=== PATIENT | female | born 1970 | race African-American/Black ===

== ENCOUNTER 2018-04-05 19:15 | Inpatient (IN) | payer BC ==
[2018-04-05] MEDS ORDERED: NORMAL SALINE 1000 ML 1,000 ML IV ONE (19:52)
--- NOTE | 2018-04-05 19:55 | ER Document Report ---
ED Medical Screen (RME) - General Chief Complaint: Syncope Stated Complaint: BLOOD SUGAR ISSUE Time Seen by Provider: 04/05/18 19:51 Notes: 48 years old female with a history of diabetes, elevated blood sugar, has a right axillary abscess/cellulitis presents today with a fever of 101, feeling dizzy lightheaded, almost passed out prior to arrival. On examination appears weak, right axilla has a erythematous area of 6 cm circumferential. Tender TRAVEL OUTSIDE OF THE [place] IN LAST 30 DAYS: No - Related Data Allergies/Adverse Reactions: No Known Allergies Allergy (Verified 04/05/18 19:18) Physical Exam - Vital signs Vitals: Temp Pulse Resp BP Pulse Ox 100.3 F 104 H 26 H 154/85 H 99 04/05/18 19:22 04/05/18 19:22 04/05/18 19:22 04/05/18 19:22 04/05/18 19:22 Course - Vital Signs Vital signs: Temp Pulse Resp BP Pulse Ox 100.3 F 104 H 26 H 154/85 H 99 04/05/18 19:22 04/05/18 19:22 04/05/18 19:22 04/05/18 19:22 04/05/18 19:22 Doctor's Discharge - Discharge Referrals: CHELSIE HERRERA MD [Primary Care Provider] - Follow up as needed
[2018-04-05] MEDS ORDERED: CEFTRIAXONE 2 GM/D5W RTU 2 GM/50 ML RTUPB IV SCH (20:16)
[2018-04-05] MEDS ORDERED: CEFTRIAXONE INJ 1000 MG VIAL ONE ×2 (20:25→20:26)
[2018-04-05 20:26] LABS: ABSOLUTE BASOPHILS # (AUTO) 0.1 10^3/uL (0.0-0.2); ABSOLUTE EOSINOPHILS # (AUTO) 0.2 10^3/uL (0.0-0.6); ABSOLUTE LYMPHOCYTES (AUTO) 1.4 10^3/uL (0.5-4.7); ABSOLUTE MONOCYTES (AUTO) 0.7 10^3/uL (0.1-1.4); ABSOLUTE NEUT (AUTO) 10.5 10^3/uL (1.7-8.2); BASOPHILS % (AUTO) 0.8 % (0-2); EOSINOPHILS % (AUTO) 1.7 % (0-6); HEMATOCRIT 28.5 % (36.0-47.0); HEMOGLOBIN 9.8 g/dL (12.0-15.5); LYMPHOCYTES % (AUTO) 10.7 % (13-45); MEAN CORPUSCULAR HEMOGLOBIN 31.6 pg (27.0-33.4); MEAN CORPUSCULAR HGB CONC 34.4 g/dL (32.0-36.0); MEAN CORPUSCULAR VOLUME 92 fl (80-97); MONOCYTES % (AUTO) 5.1 % (3-13); PLATELET COUNT 201 10^3/uL (150-450); RED CELL DISTRIBUTION WIDTH 12.6 % (11.5-14.0); SEGMENTED NEUTROPHILS % (AUTO) 81.7 % (42-78); TOTAL CELLS COUNTED % (AUTO) 100 %; WHITE BLOOD COUNT 12.9 10^3/uL (4.0-10.5)
[2018-04-05 20:34] LABS: ALANINE AMINOTRANSFERASE 12 U/L (9-52); ALBUMIN 3.4 g/dL (3.5-5.0); ALKALINE PHOSPHATASE 183 U/L (38-126); ANION GAP 9 (5-19); ASPARTATE AMINO TRANSFERASE 12 U/L (14-36); BILIRUBIN,DIRECT 0.5 mg/dL (0.0-0.4); BILIRUBIN,TOTAL 0.5 mg/dL (0.2-1.3); BLOOD UREA NITROGEN 21 mg/dL (7-20); CALCIUM 8.6 mg/dL (8.4-10.2); CARBON DIOXIDE 24 mmol/L (22-30); CHLORIDE 98 mmol/L (98-107); POTASSIUM 4.6 mmol/L (3.6-5.0); SODIUM 130.9 mmol/L (137-145); TOTAL PROTEIN 7.3 g/dL (6.3-8.2)
[2018-04-05 20:45] LABS: GLUCOSE 411 mg/dL (75-110)
[2018-04-05 20:59] LABS: VENOUS BLOOD BASE EXCESS -1.9 mmol/L; VENOUS BLOOD HCO3 23.5 mmol/L (20-32); VENOUS BLOOD PCO2 42.5 mmHg (35-63); VENOUS BLOOD PH 7.36 (7.30-7.42)
[2018-04-05] MEDS ORDERED: CEFTRIAXONE SODIUM 2,000 MG in NORMAL SALINE 100 ML IV SCH (21:00)
[2018-04-05] MEDS ORDERED: MORPHINE SULFATE 10 MG/ML INJ IV PRN (21:51)
[2018-04-05] MEDS: NORMAL SALINE 1000 ML 1,000 ML IV PRN (22:06)
[2018-04-05] MEDS ORDERED: LIDOCAINE 1%/EPINEPHRINE INJ 20 ML VIAL ONE (22:18)
[2018-04-05] MEDS ORDERED: LIDOCAINE 1%/EPINEPHRINE INJ 20 ML VIAL INJ ONE (22:20)
[2018-04-05] MEDS ORDERED: VANCOMYCIN HCL INJ 1000 MG VIAL IV ONE (22:21)
[2018-04-05] MEDS ORDERED: MIDAZOLAM 2 MG/2 ML INJ ONE (22:29)
[2018-04-05] MEDS ORDERED: MIDAZOLAM 2 MG/2 ML INJ IV ONE (22:29)
[2018-04-05] MEDS ORDERED: INSULIN REG, HUMAN 100 UNIT/ML 3 ML VIAL (PYX) SUBCUT ONE (23:04)
--- NOTE | 2018-04-05 23:04 | ER Document Report ---
ED General - General Chief Complaint: Syncope Stated Complaint: BLOOD SUGAR ISSUE Time Seen by Provider: 04/05/18 19:51 Notes: Patient is a 48-year-old female with a past medical history of diabetes, hypertension, morbid obesity who presents with complaints of fever, body aches, and near syncopal episode prior to arrival. She also notes that she has had several days of progressively worsening swelling and pain to her right axilla. She also notes that there is been purulent drainage from this area. She describes the pain as a severe, throbbing, constant pain to the area. She has noted spreading redness from the area. She denies a history of similar symptoms in the past. She has not seen her general doctor regarding today's concerns. TRAVEL OUTSIDE OF THE [place] IN LAST 30 DAYS: No - Related Data Allergies/Adverse Reactions: No Known Allergies Allergy (Verified 04/05/18 19:18) Past Medical History - General Information source: Patient - Social History Smoking Status: Never Smoker Chew tobacco use (# tins/day): No Frequency of alcohol use: None Drug Abuse: None Lives with: Spouse/Significant other Family History: Reviewed & Not Pertinent Patient has suicidal ideation: No Patient has homicidal ideation: No Renal/ Medical History: Denies: Hx Peritoneal Dialysis Review of Systems - Review of Systems Notes: Constitutional: Positive for fever. HENT: Negative for sore throat. Eyes: Negative for visual changes. Cardiovascular: Negative for chest pain. Respiratory: Negative for shortness of breath. Gastrointestinal: Negative for abdominal pain, vomiting or diarrhea. Genitourinary: Negative for dysuria. Musculoskeletal: Negative for back pain. Skin: Positive for rash. Neurological: Negative for headaches, weakness or numbness. 10 point ROS negative except as marked above and in HPI. Physical Exam - Vital signs Vitals: Temp Pulse Resp BP Pulse Ox 100.3 F 104 H 26 H 154/85 H 99 04/05/18 19:22 04/05/18 19:22 04/05/18 19:22 04/05/18 19:22 04/05/18 19:22 Interpretation: Tachycardic Notes: PHYSICAL EXAMINATION: GENERAL: Appears moderately ill but in no acute distress HEAD: Atraumatic, normocephalic. EYES: Pupils equal round and reactive to light, extraocular movements intact, sclera anicteric, conjunctiva are normal. ENT: nares patent, oropharynx clear without exudates. Moderately dry mucous membranes. NECK: Normal range of motion, supple without lymphadenopathy LUNGS: Breath sounds clear to auscultation bilaterally and equal. No wheezes rales or rhonchi. HEART: Regular tachycardia without murmurs ABDOMEN: Soft, nontender, normoactive bowel sounds. No guarding, no rebound. No masses appreciated. EXTREMITIES: Normal range of motion, no pitting or edema. No cyanosis. NEUROLOGICAL: No focal neurological deficits. Moves all extremities spontaneously and on command. PSYCH: Moderately anxious SKIN: Warm, Dry, normal turgor, there is a 4 x 5 cm abscess in the right axilla with spreading erythema approximately 2 cm medially from the main area of fluctuance Course - Re-evaluation Re-evalutation: 04/05/18 23:03 Patient presents with sepsis with fever, tachycardia, leukocytosis in the setting of an abscess with associated cellulitis in her right axilla. The patient denies a known history of chronic kidney disease although labs from 2016 do show some apparent disease of chronic kidney disease. GFR is however much worse today worrisome for superimposed acute kidney dysfunction in the setting of sepsis. The patient is also profoundly hyperglycemic into the 400s without evidence of diabetic ketoacidosis. The abscess was incised and drained at the bedside. Given the patient having acute on chronic kidney dysfunction, severe hyperglycemia, and meeting sepsis criteria she should be hospitalized. I will discussed with the hospitalist for admission. - Vital Signs Vital signs: Temp Pulse Resp BP Pulse Ox 99.5 F 89 16 155/72 H 100 04/06/18 01:06 04/06/18 01:06 04/06/18 01:06 04/06/18 01:06 04/06/18 01:06 - Laboratory Result Diagrams: 04/05/18 20:00 04/05/18 20:00 Laboratory results interpreted by me: 04/05/18 04/05/18 04/05/18 20:00 20:00 20:00 WBC 12.9 H RBC 3.10 L Hgb 9.8 L Hct 28.5 L Seg Neutrophils % 81.7 H Lymphocytes % 10.7 L Absolute Neutrophils 10.5 H Sodium 130.9 L BUN 21 H Creatinine 2.20 H Est GFR ( Amer) 29 L Est GFR (Non-Af Amer) 24 L Glucose 411 H* Hemoglobin A1c % Iron < 10.1 L TIBC 210 L Direct Bilirubin 0.5 H AST 12 L Alkaline Phosphatase 183 H Albumin 3.4 L 04/05/18 20:00 WBC RBC Hgb Hct Seg Neutrophils % Lymphocytes % Absolute Neutrophils Sodium BUN Creatinine Est GFR ( Amer) Est GFR (Non-Af Amer) Glucose Hemoglobin A1c % > 14.0 H Iron TIBC Direct Bilirubin AST Alkaline Phosphatase Albumin Procedures - Incision and Drainage Right axilla Type: Complex Anesthetic type: 1% Lidocaine w/epi Blade size: 11 I&D procedure: Betadine prep applied, Iodoform packing placed Incision Method: Incision made by scalpel Amount/type of drainage: 15 cc of purulent drainage Discharge - Discharge Clinical Impression: Abscess of right axilla, Cellulitis of upper arm, Hyperglycemia Sepsis Qualifiers: Sepsis type: sepsis due to unspecified organism Qualified Code(s): A41.9 - Sepsis, unspecified organism Condition: Fair Disposition: ADMITTED INPATIENT Admitting Provider: Hospitalist Unit Admitted: Telemetry
[2018-04-05] MEDS ORDERED: RINGERS SOLUTION,LACTATED 1,000 ML IV ONE (23:07)
[2018-04-05] MEDS ORDERED: HYDRALAZINE HCL INJ/PF 20 MG/1 ML SDV IV PRN (23:08)
[2018-04-05] MEDS ORDERED: MAG HYDROX/AL HYDROX/SIMETH SUSP 30 ML UDCUP PO PRN (23:08)
[2018-04-05] MEDS ORDERED: ZOLPIDEM TARTRATE 5 MG TABLET PO PRN (23:08)
[2018-04-05] MEDS ORDERED: ACETAMINOPHEN 325 MG TABLET PO PRN (23:08)
[2018-04-05] MEDS ORDERED: MAGNESIUM HYDROXIDE SUSP 30 ML UDCUP PO PRN (23:08)
[2018-04-05] MEDS ORDERED: VANCOMYCIN HCL 0 MG in DEXTROSE 5%-WATER 250 ML IV NR (23:15)
[2018-04-05 23:34] LABS: ABSOLUTE RETICS # 0.036 10^6/uL (0.028-0.122); RETICULOCYTE COUNT (AUTO) 1.15 % (0.66-2.85)
[2018-04-05 23:54] LABS: IRON(TIBC) < 10.1 ug/dL (37-170)
[2018-04-06] MEDS ORDERED: NORMAL SALINE 1000 ML 1,000 ML IV PRN
[2018-04-06 00:04] LABS: APPEARANCE,URINE CLEAR; BILIRUBIN,URINE NEGATIVE (NEGATIVE); COLOR,URINE YELLOW; GLUCOSE, URINE >=500 mg/dL (NEGATIVE); KETONES,URINE NEGATIVE (NEGATIVE); LEUKOCYTE ESTERASE,URINE NEGATIVE (NEGATIVE); NITRITE,URINE NEGATIVE (NEGATIVE); PROTEIN,URINE >=500 mg/dL (NEGATIVE); URINE SPECIFIC GRAVITY 1.018; UROBILINOGEN,URINE NEGATIVE mg/dL (<2.0)
[2018-04-06 00:52] LABS: FOLATE 7.06 ng/mL (>2.76)
[2018-04-06] MEDS: HEPARIN SOD (PORCINE) 5,000 UNIT/ML 1 ML SYRINGE SUBCUT SCH ×3 (05:43→22:21)
[2018-04-06 05:50] LABS: ABSOLUTE EOSINOPHILS # (AUTO) 0.2 10^3/uL (0.0-0.6); ABSOLUTE LYMPHOCYTES (AUTO) 1.1 10^3/uL (0.5-4.7); ABSOLUTE MONOCYTES (AUTO) 0.6 10^3/uL (0.1-1.4); ABSOLUTE NEUT (AUTO) 7.6 10^3/uL (1.7-8.2); BASOPHILS % (AUTO) 0.2 % (0-2); HEMATOCRIT 24.1 % (36.0-47.0); HEMOGLOBIN 8.4 g/dL (12.0-15.5); LYMPHOCYTES % (AUTO) 11.6 % (13-45); MEAN CORPUSCULAR HEMOGLOBIN 32.1 pg (27.0-33.4); MEAN CORPUSCULAR VOLUME 92 fl (80-97); MONOCYTES % (AUTO) 6.5 % (3-13); PLATELET COUNT 161 10^3/uL (150-450); RED BLOOD COUNT 2.62 10^6/uL (3.72-5.28); RED CELL DISTRIBUTION WIDTH 12.2 % (11.5-14.0); SEGMENTED NEUTROPHILS % (AUTO) 79.7 % (42-78); TOTAL CELLS COUNTED % (AUTO) 100 %; WHITE BLOOD COUNT 9.5 10^3/uL (4.0-10.5)
[2018-04-06 06:05] LABS: ANION GAP 8 (5-19); BLOOD UREA NITROGEN 20 mg/dL (7-20); CALCIUM 7.8 mg/dL (8.4-10.2); CARBON DIOXIDE 25 mmol/L (22-30); CHLORIDE 100 mmol/L (98-107); POTASSIUM 4.5 mmol/L (3.6-5.0); SODIUM 132.5 mmol/L (137-145)
[2018-04-06] MEDS ORDERED: GLUCAGON,HUMAN RECOMB 1 MG INJ IM PRN (06:28)
[2018-04-06] MEDS ORDERED: INSULIN LISPRO 100 UNIT/ML 3 ML VIAL SUBCUT PRN (06:28)
[2018-04-06] MEDS ORDERED: DEXTROSE 40% GEL 15 GM TUBE PO PRN ×2 (06:28)
[2018-04-06] MEDS ORDERED: DEXTROSE 50%-WATER 25 GM/50 ML DISP.SYRIN IV PRN ×2 (06:28)
[2018-04-06] MEDS ORDERED: IRON SUCROSE COMPLEX INJ/PF 100 MG/5 ML SDV IV ONE ×2 (06:30→09:00)
[2018-04-06 06:39] LABS: GLUCOSE 426 mg/dL (75-110)
--- NOTE | 2018-04-06 06:41 | PDOC H&P ---
History of Present Illness Admission Date/PCP: 04/05/18 23:25 ANNABELLE CAO MD Patient complains of: Right axillary abscess History of Present Illness: RAUL SUTTON is a 48 year old female with a past medical history of hypertension, diabetes and chronic kidney disease. She presents with 1 week of increasing swelling and pain to the right axilla prompting evaluation in the emergency room where she has an I&D performed with packing. Labs reveal leukocytosis, microcytic anemia, acute on chronic renal failure. She is started on vancomycin and Rocephin then referred to the hospitalist for admission. She denies previous episode, new medications or recent antibiotic use. she is unaware of her glycemic control. Past Medical History Endocrine Medical History: Reports: Diabetes Mellitus Type 2 Renal/ Medical History: Reports: Chronic Kidney Disease Psychiatric Medical History: Reports: Tobacco Dependency Denies: Depression Social History Information Source: Patient Lives with: Spouse/Significant other Smoking Status: Never Smoker Frequency of Alcohol Use: None Hx Recreational Drug Use: No Drugs: None - Advance Directive Resuscitation Status: Full Code Family History Family History: DM, Hypertension Parental Family History Reviewed: Yes Children Family History Reviewed: Yes Sibling(s) Family History Reviewed.: Yes Medication/Allergy Allergies/Adverse Reactions: No Known Allergies Allergy (Verified 04/05/18 19:18) Review of Systems Constitutional: PRESENT: as per HPI, anorexia, fatigue Eyes: ABSENT: visual disturbances Ears: ABSENT: hearing changes Cardiovascular: ABSENT: chest pain, dyspnea on exertion, edema, orthropnea, palpitations Respiratory: ABSENT: cough, hemoptysis Gastrointestinal: PRESENT: as per HPI, bloating. ABSENT: coffee ground emesis, constipation Genitourinary: ABSENT: dysuria, hematuria Musculoskeletal: ABSENT: joint swelling Integumentary: PRESENT: as per HPI, lesions Neurological: ABSENT: abnormal gait, abnormal speech, confusion, dizziness, focal weakness, syncope Psychiatric: ABSENT: anxiety, depression, homidical ideation, suicidal ideation Endocrine: PRESENT: as per HPI, polydipsia, polyphagia, polyuria Hematologic/Lymphatic: ABSENT: easy bleeding, easy bruising Physical Exam Vital Signs: Temp Pulse Resp BP Pulse Ox 99.5 F 96 16 155/72 H 100 04/06/18 01:06 04/06/18 02:00 04/06/18 01:06 04/06/18 01:06 04/06/18 01:06 Intake & Output 04/04/18 04/05/18 04/06/18 11:59 11:59 11:59 Weight 107.3 kg General appearance: PRESENT: cooperative, mild distress. ABSENT: disheveled Head exam: PRESENT: atraumatic, normocephalic Eye exam: PRESENT: conjunctiva pink, EOMI, PERRLA. ABSENT: scleral icterus Ear exam: PRESENT: normal external ear exam Mouth exam: PRESENT: moist, tongue midline Neck exam: ABSENT: carotid bruit, JVD, lymphadenopathy, thyromegaly Respiratory exam: PRESENT: clear to auscultation sherrie. ABSENT: rales, rhonchi, wheezes Cardiovascular exam: PRESENT: RRR, tachycardia. ABSENT: diastolic murmur, rubs , systolic murmur Pulses: PRESENT: normal dorsalis pedis pul Vascular exam: PRESENT: normal capillary refill GI/Abdominal exam: PRESENT: normal bowel sounds, soft. ABSENT: distended, guarding, mass, organolmegaly, rebound, tenderness Torso Front/Back Image: 1 - Serosanguineous drainage from I&D abscess Rectal exam: PRESENT: deferred Extremities exam: PRESENT: full ROM. ABSENT: calf tenderness, clubbing, pedal edema Neurological exam: PRESENT: alert, awake, oriented to person, oriented to place , oriented to time, oriented to situation, CN II-XII grossly intact. ABSENT: motor sensory deficit Psychiatric exam: PRESENT: appropriate affect, normal mood. ABSENT: homicidal ideation, suicidal ideation Skin exam: PRESENT: erythema, other - 4 x 5 cm abscess with associated cellulitis, packing and serosanguineous drainage from the right axilla. ABSENT : intact Results Laboratory Results: 04/06/18 03:59 04/05/18 04/06/18 23:50 03:59 WBC 9.5 RBC 2.62 L Hgb 8.4 L Hct 24.1 L MCV 92 MCH 32.1 MCHC 35.0 RDW 12.2 Plt Count 161 Seg Neutrophils % 79.7 H Lymphocytes % 11.6 L Monocytes % 6.5 Eosinophils % 2.0 Basophils % 0.2 Absolute Neutrophils 7.6 Absolute Lymphocytes 1.1 Absolute Monocytes 0.6 Absolute Eosinophils 0.2 Absolute Basophils 0.0 Urine Color YELLOW Urine Appearance CLEAR Urine pH 6.0 Ur Specific [place] 1.018 Urine Protein >=500 H Urine Glucose (UA) >=500 H Urine Ketones NEGATIVE Urine Blood NEGATIVE Urine Nitrite NEGATIVE Ur Leukocyte Esterase NEGATIVE Urine WBC (Auto) 1 Urine RBC (Auto) 7 Assessment & Plan - Diagnosis (1) Abscess of right axilla Is this a current diagnosis for this admission?: Yes Plan: I&D performed, follow-up surgical consult, wound culture and Gram stain, empiric vancomycin and Rocephin initiated. (2) Cellulitis of upper arm Is this a current diagnosis for this admission?: Yes Plan: Secondary to #1, follow-up CBC (3) Sepsis Qualifiers: Sepsis type: sepsis due to unspecified organism Qualified Code(s): A41.9 - Sepsis, unspecified organism Is this a current diagnosis for this admission?: Yes Plan: Secondary to #1, IV fluid challenge, follow-up lactic acid, CBC blood culture. (4) Acute on chronic renal failure Is this a current diagnosis for this admission?: Yes Plan: Discontinue metformin, IV fluid challenge, avoid nephrotoxic meds and doses follow-up chemistry (5) Diabetes Is this a current diagnosis for this admission?: Yes Plan: Discontinue metformin, insulin 7030 twice daily with Humalog sliding scale, follow-up A1c, dietitian consult - Time Time Spent: 50 to 70 Minutes - Inpatient Certification Medical Necessity: Need Close Monitoring Due to Risk of Patient Decompensation
[2018-04-06] MEDS ORDERED: HUM INSULIN NPH/REG INSULIN HM 100 UNIT/1 ML 3 ML SUBCUT SCH (08:00)
[2018-04-06] MEDS ORDERED: INSULIN LISPRO 100 UNIT/ML 3 ML VIAL SUBCUT ONE (08:45)
[2018-04-06] MEDS ORDERED: HUM INSULIN NPH/REG INSULIN HM 100 UNIT/1 ML 3 ML SUBCUT ONE (08:45)
[2018-04-06] MEDS: INSULIN LISPRO 100 UNIT/ML 3 ML VIAL SUBCUT PRN ×3 (08:54→22:22)
[2018-04-06] MEDS: DOCUSATE SODIUM 100 MG CAPSULE PO SCH ×2 (09:18→22:20)
[2018-04-06] MEDS ORDERED: CEFTRIAXONE 2 GM/D5W RTU 2 GM/50 ML RTUPB IV SCH (10:00)
[2018-04-06] MEDS ORDERED: CEFTRIAXONE 1 GM/D5W RTU 1 GM/50 ML RTUPB IV SCH (10:00)
[2018-04-06] MEDS: VANCOMYCIN HCL 750 MG in DEXTROSE 5%-WATER 250 ML IV SCH ×2 (11:04→22:26)
[2018-04-06] MEDS: NORMAL SALINE 1000 ML 1,000 ML IV PRN ×2 (11:09→20:24)
[2018-04-06] MEDS ORDERED: OXYCODONE HCL IR 5 MG TABLET PO PRN (17:32)
--- NOTE | 2018-04-06 17:38 | PDOC PROGRESS REPORT ---
Subjective Progress Note for:: 04/06/18 Subjective:: The patient is a 48-year-old female with a past medical history of hypertension , diabetes, and chronic kidney disease who was admitted 04/05/18 for sepsis secondary to abscess and cellulitis of the right upper arm. The patient is seen on morning rounds. She is found resting in bed comfortably on room air. She is awake and alert x4. She tells me that she is feeling fine and denies pain or discomfort at this time. The surgeon has just been by to examine the wound and she is happy to report that he does not feel that she needs to go to the OR today. The plan is to continue IV antibiotics today, n.p.o. after midnight, and reevaluation by surgery tomorrow. The patient does ask questions with regard to her A1c and initiation of insulin. She reports that she has used insulin in the past; but only while . We discussed briefly discussed the plan to monitor her sugar closely , adjust insulin, and hopefully discharge her on long-acting insulin only. We will also ask the registered dietitian and the tobacco educator to meet with the patient. She denies fever, chills, chest pain, palpitations, dyspnea, orthopnea, abdominal pain, nausea and vomiting. She has no other questions or concerns at this time. Nursing did have clarification questions with regard to insulin, but otherwise no concerns today. Reason For Visit: SEPSIS, ACUTE RENAL FAILURE,DM,ABSCESS Physical Exam Vital Signs: Temp Pulse Resp BP Pulse Ox 100.0 F 89 18 150/71 H 100 04/06/18 15:43 04/06/18 15:43 04/06/18 15:43 04/06/18 15:43 04/06/18 15:43 Intake & Output 04/05/18 04/06/18 04/07/18 06:59 06:59 06:59 Intake Total 2250 Balance 2250 General appearance: PRESENT: no acute distress, obese, well-developed, well- nourished Head exam: PRESENT: atraumatic, normocephalic Eye exam: PRESENT: conjunctiva pink, EOMI, PERRLA. ABSENT: scleral icterus Ear exam: PRESENT: normal external ear exam Mouth exam: PRESENT: moist, tongue midline Neck exam: ABSENT: carotid bruit, JVD, lymphadenopathy, thyromegaly Respiratory exam: PRESENT: clear to auscultation sherrie, symmetrical, unlabored. ABSENT: rales, rhonchi, wheezes Cardiovascular exam: PRESENT: RRR, +S1, +S2. ABSENT: diastolic murmur, rubs, systolic murmur Pulses: PRESENT: normal dorsalis pedis pul Vascular exam: PRESENT: normal capillary refill GI/Abdominal exam: PRESENT: normal bowel sounds, soft. ABSENT: distended, guarding, mass, organolmegaly, rebound, tenderness Rectal exam: PRESENT: deferred Extremities exam: PRESENT: full ROM. ABSENT: calf tenderness, clubbing, pedal edema Neurological exam: PRESENT: alert, awake, oriented to person, oriented to place , oriented to time, oriented to situation, CN II-XII grossly intact. ABSENT: motor sensory deficit Psychiatric exam: PRESENT: appropriate affect, normal mood. ABSENT: homicidal ideation, suicidal ideation Skin exam: PRESENT: dry, erythema - RUE, warm, other - I&D to right axilla; wound not visualized, new dressing in place. ABSENT: cyanosis, rash Assessment & Plan - Diagnosis (1) Sepsis Qualifiers: Sepsis type: sepsis due to unspecified organism Qualified Code(s): A41.9 - Sepsis, unspecified organism Is this a current diagnosis for this admission?: Yes Plan: The patient presented with sepsis due to cellulitis/abscess of the right upper extremity evidenced by fever, tachycardia, tachypnea, leukocytosis, and acute worsening of chronic kidney disease. She was admitted to the medical floor and provided generous IV fluids. Blood cultures are pending. She was empirically placed on IV vancomycin and Rocephin. (2) Abscess of right axilla Is this a current diagnosis for this admission?: Yes Plan: Status post incision and drainage. Wound culture and Gram stain were not obtained. Blood cultures are pending. She is empirically placed on IV vancomycin and Rocephin; will adjust as cultures result. Surgery has been consulted; appreciate their expert evaluation and assistance. Tylenol as needed for fever. Oxycodone as needed for pain. (3) Cellulitis of upper arm Is this a current diagnosis for this admission?: Yes Plan: Related to right axillary abscess. Plan as above. (4) Anemia Qualifiers: Anemia type: iron deficiency Is this a current diagnosis for this admission?: Yes Plan: Multifactorial; likely secondary to chronic kidney insufficiency and poor nutrition in the setting of obesity and uncontrolled diabetes mellitus. The patient was admitted with a hemoglobin of 9.8, trended down to 8.4 following IV fluids. Anemia panel reveals iron deficiency. She has been provided IV benefit here x2. Registered dietitian and tobacco educator educated. We will continue to monitor daily CBC; consider transfusion for hemoglobin <8.0 (5) Acute on chronic renal failure Qualifiers: Chronic kidney disease stage: stage 3 (moderate) Is this a current diagnosis for this admission?: Yes Plan: Baseline creatinine approximately 1.88 (most recent prior labs from November 2015). She was admitted with a creatinine of 2.20; has trended down with IV fluids. We will avoid nephrotoxic medications. Metformin is discontinued. Renally dosed vancomycin. Continue maintenance IV fluids. We will monitor daily chemistries. (6) Diabetes Qualifiers: Diabetes mellitus type: type 2 Diabetes mellitus assisted insulin use: without coil maker use Diabetes mellitus complication status: with kidney complications Chronic kidney disease stage: stage 3 (moderate) Is this a current diagnosis for this admission?: Yes Plan: Hemoglobin A1c found to be >14% The patient's metformin is discontinued. She is placed on a consistent carb diet. Accu-Cheks before meals and at bedtime with Humalog for sliding scale coverage. Have started Lantus 10 units nightly. Registered dietitian and tobacco educator consulted. We will consult discharge planning; will need to ensure patient will be able to afford insulin at discharge. (7) Hypertension Qualifiers: Hypertension type: essential hypertension Qualified Code(s): I10 - Essential (primary) hypertension Is this a current diagnosis for this admission?: Yes Plan: Have resumed the patient's home dose losartan. - Time Time Spent with patient: 15-24 minutes Medications reviewed and adjusted accordingly: Yes Anticipated discharge: Home - Inpatient Certification Based on my medical assessment, after consideration of the patient's comorbidities, presenting symptoms, or acuity I expect that the services needed warrant INPATIENT care.: Yes I certify that my determination is in accordance with my understanding of Medicare's requirements for reasonable and necessary INPATIENT services [42 CFR 412.3e].: Yes Medical Necessity: Need For IV Fluids, Need for IV Antibiotics, Need for Surgery
[2018-04-06] MEDS ORDERED: INSULIN GLARGINE,HUM.REC.ANLOG 300 UNIT/3 ML INSULN.PEN SUBCUT SCH (22:00)
[2018-04-06] MEDS ORDERED: CEFTRIAXONE SODIUM 1,000 MG in DEXTROSE 5%-WATER 50 ML IV SCH (22:00)
--- NOTE | 2018-04-06 22:39 | PDOC CONSULTATION ---
Consultation Consult Date: 04/06/18 Consult reason:: abscess right axilla post i&D in ED last night History of Present Illness Admission Date/PCP: 04/06/18 06:42 ANNABELLE CAO MD Patient complains of: Right axilla pains History of Present Illness: RAUL SUTTON is a 48 year old female who is hypertensive and Diabetic with CRF admitted for a week's duration of right axilla pains. Noted ascess in the ED. Right axilla was drained and packing placed in ED. Past Medical History Endocrine Medical History: Reports: Diabetes Mellitus Type 2 Renal/ Medical History: Reports: Chronic Kidney Disease Psychiatric Medical History: Reports: Tobacco Dependency Denies: Depression Social History Lives with: Spouse/Significant other Smoking Status: Never Smoker Frequency of Alcohol Use: None Hx Recreational Drug Use: No Drugs: None - Advance Directive Resuscitation Status: Full Code Family History Family History: DM, Hypertension Parental Family History Reviewed: Yes Children Family History Reviewed: No Sibling(s) Family History Reviewed.: No Medication/Allergy Home Medications: Metformin HCl [Glucophage 500 mg Tablet] 500 mg PO DAILY 04/06/18 Triamterene/Hydrochlorothiazid [Dyazide 37.5-25 Capsule] 1 cap PO DAILY Allergies/Adverse Reactions: No Known Allergies Allergy (Verified 04/05/18 19:18) Review of Systems Constitutional: PRESENT: fever(s) Eyes: PRESENT: other - no visual/hearing changes Cardiovascular: PRESENT: other - no chest pains/cough Gastrointestinal: PRESENT: other - no pains Integumentary: PRESENT: other - Right axilla pains Physical Exam Vital Signs: Temp Pulse Resp BP Pulse Ox 98.5 F 82 16 146/70 H 100 04/06/18 20:10 04/06/18 20:10 04/06/18 20:10 04/06/18 20:10 04/06/18 20:10 Intake & Output 04/05/18 04/06/18 04/07/18 06:59 06:59 06:59 Intake Total 4032 Balance 4032 General appearance: PRESENT: mild distress Exam: Right axilla with erythema. Abscess site with a small drain with small amount of drainage. Assessment & Plan - Time Time Spent: 30 to 50 Minutes - Inpatient Certification Medical Necessity: Need for Pain Control, Need for IV Antibiotics - Plan Summary Plan Summary: Will remove drain in am and see if needs further debridement. Keep NPO tonight Continue hydration for CRF and IV antibiotics
[2018-04-07 05:10] LABS: ABSOLUTE EOSINOPHILS # (AUTO) 0.2 10^3/uL (0.0-0.6); ABSOLUTE LYMPHOCYTES (AUTO) 1.3 10^3/uL (0.5-4.7); ABSOLUTE MONOCYTES (AUTO) 0.6 10^3/uL (0.1-1.4); ABSOLUTE NEUT (AUTO) 5.8 10^3/uL (1.7-8.2); BASOPHILS % (AUTO) 0.2 % (0-2); EOSINOPHILS % (AUTO) 2.8 % (0-6); HEMATOCRIT 23.9 % (36.0-47.0); HEMOGLOBIN 8.2 g/dL (12.0-15.5); LYMPHOCYTES % (AUTO) 16.3 % (13-45); MEAN CORPUSCULAR HEMOGLOBIN 31.4 pg (27.0-33.4); MEAN CORPUSCULAR HGB CONC 34.2 g/dL (32.0-36.0); MEAN CORPUSCULAR VOLUME 92 fl (80-97); MONOCYTES % (AUTO) 8.1 % (3-13); PLATELET COUNT 176 10^3/uL (150-450); RED CELL DISTRIBUTION WIDTH 12.5 % (11.5-14.0); SEGMENTED NEUTROPHILS % (AUTO) 72.6 % (42-78); TOTAL CELLS COUNTED % (AUTO) 100 %
[2018-04-07 05:28] LABS: BLOOD UREA NITROGEN 18 mg/dL (7-20); CALCIUM 8.3 mg/dL (8.4-10.2); GLUCOSE 211 mg/dL (75-110)
[2018-04-07 05:33] LABS: ANION GAP 6 (5-19); CARBON DIOXIDE 23 mmol/L (22-30); CHLORIDE 109 mmol/L (98-107); SODIUM 137.6 mmol/L (137-145)
[2018-04-07] MEDS: HEPARIN SOD (PORCINE) 5,000 UNIT/ML 1 ML SYRINGE SUBCUT SCH (06:55)
[2018-04-07] MEDS: INSULIN LISPRO 100 UNIT/ML 3 ML VIAL SUBCUT PRN ×2 (08:30→11:48)
[2018-04-07] MEDS ORDERED: HYDROCHLOROTHIAZID PO SCH (10:00)
[2018-04-07] MEDS ORDERED: TRIAMTERENE PO SCH (10:00)
[2018-04-07] MEDS: DOCUSATE SODIUM 100 MG CAPSULE PO SCH (10:12)
[2018-04-07] MEDS: VANCOMYCIN HCL 750 MG in DEXTROSE 5%-WATER 250 ML IV SCH (10:14)
[2018-04-07] MEDS: NORMAL SALINE 1000 ML 1,000 ML IV PRN (10:14)
[2018-04-07 10:36] LABS: VANCOMYCIN,TROUGH 20.8 ug/mL (5.0-20.0)
[2018-04-07 13:45] VITALS: BP 150/73
[2018-04-08] MEDS ORDERED: VANCOMYCIN HCL 1,250 MG in DEXTROSE 5%-WATER 250 ML IV SCH (10:00)
== END 2018-04-07 14:30 | disposition home or self-care (01) | DRG 872 ==
LOC: ER 19:15 → INTOOBSV 23:25 → EH 23:25 → 4N 04-06 01:00 → OBSVTOIN 04-06 06:42
PROVIDERS: ADMIT Internal Medicine; ATTEND Internal Medicine
PROC: 0X940ZZ Drainage of Right Axilla, Open Approach (ICD-10-PCS; principal; 2018-04-06)
DX: A41.9 Sepsis, unspecified organism (principal); L02.411 Cutaneous abscess of right axilla; L03.111 Cellulitis of right axilla; N17.9 Acute kidney failure, unspecified; L03.113 Cellulitis of right upper limb; E11.65 Type 2 diabetes mellitus with hyperglycemia; B95.61 Methicillin susceptible Staphylococcus aureus infection as the cause of diseases classified elsewhere; E11.22 Type 2 diabetes mellitus with diabetic chronic kidney disease; N18.3 Chronic kidney disease, stage 3 (moderate); D50.9 Iron deficiency anemia, unspecified; D63.1 Anemia in chronic kidney disease; I12.9 Hypertensive chronic kidney disease with stage 1 through stage 4 chronic kidney disease, or unspecified chronic kidney disease; E66.9 Obesity, unspecified; F17.200 Nicotine dependence, unspecified, uncomplicated; Z79.4 Long term (current) use of insulin; Z83.3 Family history of diabetes mellitus; Z82.49 Family history of ischemic heart disease and other diseases of the circulatory system
CPT/HCPCS: 36415; 80048; 80053; 80202; 81001; 82607; 82728; 82746; 82803; 82962; 83036; 83540; 83550; 83605; 84443; 85025; 85045; 87040; 87070; 87077; 87186; 87205; 96361; 96365; 96367; 96375; 99285; G0378; J0696; J1644; J1756; J1815; J2250; J2270; J3370; J3490; J7060

== ENCOUNTER → 2019-05-06 | Outpatient (CLI) | payer BC ==
--- NOTE | 2019-05-06 15:59 | RADIOLOGY REPORT (SQ) ---
EXAM DESCRIPTION: CAROTID DOPPLER COMPLETED DATE/TIME: 05/06/2019 3:13 pm REASON FOR STUDY: BRUIT R09.89 OTH SYMPTOMS AND SIGNS INVOLVING THE CIRC AND RESP SY COMPARISON: None. TECHNIQUE: Grayscale ultrasound, Doppler velocity and spectra, and color Doppler images acquired of the extra-cranial carotid and vertebral arteries. Images stored on PACS. LIMITATIONS: None. FINDINGS: RIGHT CAROTID CCA Velocities: Within normal limits. ICA Velocities Peak systolic 85 cm/s. End diastolic 26 cm/s. Proximal ICA/CCA peak systolic ratio 1.2. Spectra normal. No significant plaque. LEFT CAROTID CCA Velocities: Within normal limits. ICA Velocities Peak systolic 113 cm/s. End diastolic 45 cm/s. Proximal ICA/CCA peak systolic ratio 1.1. Spectra normal. No significant plaque. VERTEBRAL ARTERIES: Antegrade flow. Normal waveforms. SUBCLAVIAN ARTERIES: No finding. OTHER: No other significant finding. IMPRESSION: NO HEMODYNAMICALLY SIGNIFICANT STENOSIS. COMMENT: Quality ID #[id number]: Velocity criteria are extrapolated from the diameter data as defined by t he Society of Radiologists in Ultrasound Consensus Conference. Radiology 2003: 229; 340-346. TECHNICAL DOCUMENTATION: JOB ID: [id number] [place]-72 2010 [employer]- All Rights Reserved Reading location - IP/workstation name: [employer]
== END ==
LOC: SP 14:36
PROVIDERS: ATTEND Internal Medicine Nephrology
DX: R09.89 Other specified symptoms and signs involving the circulatory and respiratory systems (principal)
CPT/HCPCS: 93880

== ENCOUNTER → 2019-06-04 | Outpatient (CLI) | payer BC ==
[2019-06-04 15:38] LABS: ABSOLUTE EOSINOPHILS # (AUTO) 0.3 10^3/uL (0.0-0.6); TOTAL CELLS COUNTED % (AUTO) 100 %; WHITE BLOOD COUNT 6.7 10^3/uL (4.0-10.5)
[2019-06-04 15:41] LABS: ABSOLUTE MONOCYTES (AUTO) 0.3 10^3/uL (0.1-1.4); ABSOLUTE NEUT (AUTO) 4.1 10^3/uL (1.7-8.2); BASOPHILS % (AUTO) 0.6 % (0-2); EOSINOPHILS % (AUTO) 4.2 % (0-6); HEMATOCRIT 25.3 % (36.0-47.0); HEMOGLOBIN 8.7 g/dL (12.0-15.5); MEAN CORPUSCULAR HEMOGLOBIN 31.9 pg (27.0-33.4); MEAN CORPUSCULAR HGB CONC 34.5 g/dL (32.0-36.0); MEAN CORPUSCULAR VOLUME 93 fl (80-97); MONOCYTES % (AUTO) 4.9 % (3-13); PLATELET COUNT 214 10^3/uL (150-450); RED BLOOD COUNT 2.73 10^6/uL (3.72-5.28); RED CELL DISTRIBUTION WIDTH 14.3 % (11.5-14.0); SEGMENTED NEUTROPHILS % (AUTO) 60.3 % (42-78)
[2019-06-04 15:48] LABS: APPEARANCE,URINE SLIGHTLY-CLOUDY; BILIRUBIN,URINE NEGATIVE (NEGATIVE); COLOR,URINE YELLOW; GLUCOSE, URINE >=500 mg/dL (NEGATIVE); KETONES,URINE NEGATIVE (NEGATIVE); LEUKOCYTE ESTERASE,URINE NEGATIVE (NEGATIVE); NITRITE,URINE NEGATIVE (NEGATIVE); PROTEIN,URINE >=500 mg/dL (NEGATIVE); URINE SPECIFIC GRAVITY 1.016; UROBILINOGEN,URINE NEGATIVE mg/dL (<2.0)
[2019-06-04 15:57] LABS: ALBUMIN 4.1 g/dL (3.5-5.0); ALKALINE PHOSPHATASE 162 U/L (38-126); ANION GAP 15 (5-19); ASPARTATE AMINO TRANSFERASE 14 U/L (14-36); BILIRUBIN,DIRECT 0.2 mg/dL (0.0-0.4); BILIRUBIN,TOTAL 0.4 mg/dL (0.2-1.3); BLOOD UREA NITROGEN 43 mg/dL (7-20); CALCIUM 8.9 mg/dL (8.4-10.2); CARBON DIOXIDE 17 mmol/L (22-30); CHLORIDE 105 mmol/L (98-107); GLUCOSE 203 mg/dL (75-110); POTASSIUM 4.3 mmol/L (3.6-5.0)
== END ==
LOC: OD 14:07
PROVIDERS: ATTEND Internal Medicine Nephrology
DX: N18.4 Chronic kidney disease, stage 4 (severe) (principal); I12.9 Hypertensive chronic kidney disease with stage 1 through stage 4 chronic kidney disease, or unspecified chronic kidney disease; E11.9 Type 2 diabetes mellitus without complications; D63.1 Anemia in chronic kidney disease
CPT/HCPCS: 36415; 80053; 81001; 82043; 82570; 85025

== ENCOUNTER → 2020-01-28 | Outpatient (CLI) | payer BC ==
[2020-01-28 12:13] LABS: HEMATOCRIT 21.8 % (36.0-47.0); MEAN CORPUSCULAR HEMOGLOBIN 32.9 pg (27.0-33.4); MEAN CORPUSCULAR HGB CONC 33.4 g/dL (32.0-36.0); MEAN CORPUSCULAR VOLUME 98 fl (80-97); PLATELET COUNT 164 10^3/uL (150-450); RED BLOOD COUNT 2.22 10^6/uL (3.72-5.28); RED CELL DISTRIBUTION WIDTH 13.5 % (11.5-14.0); WHITE BLOOD COUNT 4.9 10^3/uL (4.0-10.5)
[2020-01-28 12:32] LABS: ANION GAP 5 (5-19); BLOOD UREA NITROGEN 41 mg/dL (7-20); CALCIUM 8.4 mg/dL (8.4-10.2); CARBON DIOXIDE 18 mmol/L (22-30); CHLORIDE 114 mmol/L (98-107); GLUCOSE 86 mg/dL (75-110); PHOSPHORUS 4.8 mg/dL (2.5-4.5); POTASSIUM 5.8 mmol/L (3.6-5.0)
[2020-01-28 13:41] LABS: HEMOGLOBIN 7.3 g/dL (12.0-15.5)
[2020-01-29 09:02] LABS: IRON(TIBC) 71.5 ug/dL (37-170)
== END ==
LOC: OD 11:30
PROVIDERS: ATTEND Internal Medicine Nephrology
DX: N18.5 Chronic kidney disease, stage 5 (principal); D63.1 Anemia in chronic kidney disease
CPT/HCPCS: 36415; 80048; 82728; 83540; 83550; 83970; 84100; 85027

== ENCOUNTER 2020-05-18 10:23 | Day surgery (SDC) | payer BC ==
[~2020-05-18 10:23] MED LIST: CEFAZOLIN 2 GM/D5W RTU 2 GM/50 ML RTUPB IV PRN; FENTANYL CITRATE INJ/PF 100 MCG/2 ML AMPUL ONE; MIDAZOLAM 2 MG/2 ML INJ ONE; ONDANSETRON HCL INJ/PF 4 MG/2 ML SDV ONE; PROPOFOL INJ 200 MG/20 ML VIAL IV ONE
[2020-05-18] MEDS ORDERED: CEFAZOLIN 2 GM/D5W RTU 2 GM/50 ML RTUPB IV ONE (10:41)
[2020-05-18 11:08] LABS: ABSOLUTE EOSINOPHILS # (AUTO) 0.1 10^3/uL (0.0-0.6); ABSOLUTE MONOCYTES (AUTO) 0.4 10^3/uL (0.1-1.4); ABSOLUTE NEUT (AUTO) 2.4 10^3/uL (1.7-8.2); BASOPHILS % (AUTO) 0.5 % (0-2); EOSINOPHILS % (AUTO) 3.6 % (0-6); HEMATOCRIT 30.3 % (36.0-47.0); HEMOGLOBIN 10.1 g/dL (12.0-15.5); LYMPHOCYTES % (AUTO) 25.6 % (13-45); MEAN CORPUSCULAR HEMOGLOBIN 31.5 pg (27.0-33.4); MEAN CORPUSCULAR HGB CONC 33.2 g/dL (32.0-36.0); MEAN CORPUSCULAR VOLUME 95 fl (80-97); MONOCYTES % (AUTO) 9.2 % (3-13); PLATELET COUNT 147 10^3/uL (150-450); RED BLOOD COUNT 3.19 10^6/uL (3.72-5.28); RED CELL DISTRIBUTION WIDTH 15.3 % (11.5-14.0); SEGMENTED NEUTROPHILS % (AUTO) 61.1 % (42-78); TOTAL CELLS COUNTED % (AUTO) 100 %
[2020-05-18 11:38] LABS: ANION GAP 10 (5-19); BLOOD UREA NITROGEN 62 mg/dL (7-20); CALCIUM 8.3 mg/dL (8.4-10.2); CARBON DIOXIDE 16 mmol/L (22-30); CHLORIDE 111 mmol/L (98-107); GLUCOSE 137 mg/dL (75-110); POTASSIUM 4.9 mmol/L (3.6-5.0)
[2020-05-18] MEDS ORDERED: BUPIVACAINE HCL 0.25 % INJ/PF (2.5 MG/1 ML) 30 ML VIAL ONE (12:21)
[2020-05-18] MEDS ORDERED: SUGAMMADEX SODIUM 200 MG/2 ML SDV IV ONE (12:25)
[2020-05-18] MEDS ORDERED: MORPHINE SULFATE 10 MG/ML INJ IV PRN (13:00)
[2020-05-18] MEDS ORDERED: DIPHENHYDRAMINE HCL 50 MG/ML VIAL IV PRN (13:00)
[2020-05-18] MEDS ORDERED: MEPERIDINE HCL/PF INJ 25 MG/1 ML DISP.SYRIN IV PRN (13:00)
[2020-05-18] MEDS ORDERED: PROMETHAZINE HCL INJ 25 MG/1 ML VIAL IV PRN ×2 (13:00)
[2020-05-18] MEDS ORDERED: ONDANSETRON HCL INJ/PF 4 MG/2 ML SDV IV PRN (13:00)
[2020-05-18] MEDS ORDERED: FENTANYL CITRATE INJ/PF 100 MCG/2 ML AMPUL IV PRN ×3 (13:00)
--- NOTE | 2020-05-18 14:18 | Discharge Summary ---
Discharge Summary (SDC) - Discharge Final Diagnosis: Renal failure Date of Surgery: 05/18/20 Discharge Date: 05/18/20 Condition: Stable Treatment or Instructions: Discharge home. Diet as tolerated. Activity: Nonstrenuous. Follow-up with [place] [facility] in 7 to 10 days. Keep surgical site (catheter site) dry. No tub baths or swimming pools. [place] 5/325 mg p.o. every 6 hours as needed for pain. Prescriptions: Hydrocodone/Acetaminophen [[place] 5-325 mg Tablet] 1 tab PO Q6HP PRN #14 tablet PRN Reason: For Pain Referrals: ANNABELLE CAO MD [Primary Care Provider] - Discharge Diet: As Tolerated Respiratory Treatments at Home: Deep Breathing/Coughing, Incentive Spirometer Discharge Activity: Balance Activity w/Rest Home Care Assistance: None Needed Report the Following to Your Physician Immediately: Shortness of Breath, Nausea, Vomiting, Increase in Pain, Fever over 101 Degrees, Unusual Bleeding, Redness, Swelling, Warmth
--- NOTE | 2020-05-18 14:31 | Operative Report ---
Nonrecallable Operative Report DATE OF SURGERY: 05/18/20 PREOPERATIVE DIAGNOSIS: Renal failure, in need of peritoneal dialysis catheter POSTOPERATIVE DIAGNOSIS: Same as above OPERATION: 1. Laparoscopic placement of left-sided peritoneal dialysis catheter. 2. Laparoscopic omentopexy SURGEON: GODWIN WHITEHEAD HISTORY INSTRUCTOR: MONI KINGSTON ANESTHESIA: GA TISSUE REMOVED OR ALTERED: None COMPLICATIONS: None apparent ESTIMATED BLOOD LOSS: Minimal PROCEDURE: Drains/implants: Left sided peritoneal dialysis catheter. Procedure in detail: After informed consent was obtained, the patient was brought to the operating room and laid in the supine position. The area of the abdomen was prepped and draped in a normal sterile fashion. A left upper quadrant incision was created with a 15 blade scalpel. The 5 mm camera and 5 mm trocar were inserted into the abdominal cavity using the Optiview technique. Gas insufflation was attached, pneumoperitoneum was achieved. Next, the abdomen was surveyed. There was omentum extended down into the pelvis. Secondary to this, a right upper quadrant 5 mm trocar was inserted under direct laparoscopic visualization. Next, an 8 mm laparoscopic trocar was inserted from just below the umbilicus, through the rectus sheath, tunneled along the rectus sheath, and into the abdominal cavity in the suprapubic position. Next, a PDS Endoloop was used to secure the omentum. The Endoloop was tightened, and the string was left long. The string was inserted into the abdominal cavity. The omentum was then tacked to the anterior abdominal wall in the right upper quadrant through the use of the Ramone-Kimberli device and the PDS Endoloop. Once the omentum was secured and free of the pelvis, the left- sided peritoneal dialysis catheter was inserted through the 8 mm trocar (tunneled through the rectus sheath), and situated within the pouch of Konrad. The interior cuff was left within the rectus sheath. This was confirmed with laparoscopic visualization. The catheter was then tunneled laterally, through the subcutaneous tissues, using a gentle curve. This was done ensuring at least 2 cm between the exterior cuff, and the skin edge. The catheter was then assembled. 750 cc of saline was instilled into the catheter. It flowed in easily. It also drained out easily. Next, the skin incisions were closed using 4-0 Vicryl Rapide suture in subcuticular fashion. Dressings were placed over the incision sites. The catheter exit site was s ecured with Steri-Strips. A Biopatch was placed, as well as an occlusive dressing. At this time the procedure was concluded. All sponge, instrument, and needle counts were correct x2. Condition: Stable. Moni Kingston PA-C was scrubbed and present the entirety the procedure. She assisted with all portions of the procedure including placement of the trochars, tacking of the omentum, insertion of the catheter, closure of the skin.
[2020-05-18] MEDS ORDERED: HYDROCODONE/ACETAMINOPHEN 5-325 MG TABLET ONE (15:05)
[2020-05-18] MEDS ORDERED: HYDROCODONE/ACETAMINOPHEN 5-325 MG TABLET PO ONE (15:30)
[2020-05-18 15:50] VITALS: BP 156/81
[2020-05-18] MEDS ORDERED: ROCURONIUM BROMIDE INJ 50 MG/5 ML VIAL IV ONE (16:11)
--- NOTE | 2020-05-18 17:19 | EKG REPORT ---
SEVERITY:- ABNORMAL ECG - SINUS RHYTHM LEFT ATRIAL ABNORMALITY LVH WITH SECONDARY REPOLARIZATION ABNORMALITY ANTERIOR Q WAVES, POSSIBLY DUE TO LVH : Confirmed by: Glen Leslie 18-May-2020 17:18:36
== END 2020-05-18 15:55 | disposition home or self-care (01) ==
LOC: OROUT 10:23
PROVIDERS: ATTEND Surgery
DX: I12.0 Hypertensive chronic kidney disease with stage 5 chronic kidney disease or end stage renal disease (principal); E11.22 Type 2 diabetes mellitus with diabetic chronic kidney disease; N18.6 End stage renal disease; Z03.818 Encounter for observation for suspected exposure to other biological agents ruled out; Z87.891 Personal history of nicotine dependence; Z79.899 Other long term (current) drug therapy
CPT/HCPCS: 36415; 82962; 85025; 81025; 80048; 93005; 93010; 00790; 49326; 49324; C1758; C1750; U0003; J2250; J3490 ×2; J3010; J2405; J2704; J0690; C9803; 790; 87635

== ENCOUNTER → 2020-07-20 | Outpatient (CLI) | payer BC ==
--- NOTE | 2020-07-20 12:31 | RADIOLOGY REPORT (SQ) ---
EXAM DESCRIPTION: KUB/ABDOMEN (SINGLE VIEW) IMAGES COMPLETED DATE/TIME: 07/20/2020 11:39 am REASON FOR STUDY: (T85.691S)[facility] COMPL OF INTRAPERITONEAL DIALYSIS CATHETER, SEQUELA T85.[address]S [facility] INTRAPERITONEAL DIALYSIS CATHETER, SE COMPARISON: None. NUMBER OF VIEWS: One view. TECHNIQUE: Supine radiographic image of the abdomen acquired. LIMITATIONS: None. FINDINGS: BOWEL GAS PATTERN: Nonobstructive gas pattern. Large amount retained stool. CALCIFICATIONS: No suspicious calcifications. SOFT TISSUES: No gross mass or suggestion of organomegaly. HARDWARE: Peritoneal dialysis catheter is coiled in the pelvis. The catheter appears to be intact. There is no kink. BONES: No acute fracture. No worrisome bone lesions. OTHER: No other significant finding. IMPRESSION: Constipation. Peritoneal dialysis catheter appears normal. TECHNICAL DOCUMENTATION: JOB ID: [id number] 2010 [employer]- All Rights Reserved Reading location - IP/workstation name: [email or web address]
== END ==
LOC: RAD 11:07
PROVIDERS: ATTEND Internal Medicine Nephrology
DX: T85.691S Other mechanical complication of intraperitoneal dialysis catheter, sequela (principal); X58.XXXS Exposure to other specified factors, sequela
CPT/HCPCS: 74018

== ENCOUNTER 2020-07-23 09:32 | Day surgery (SDC) | payer BC ==
[2020-07-23] MEDS ORDERED: GLYCOPYRROLATE 1 MG/5 ML VIAL ONE (09:36)
[2020-07-23] MEDS ORDERED: LIDOCAINE 2% INJ-PF (20 MG/ML) 2 ML AMPUL ONE (09:36)
[2020-07-23] MEDS ORDERED: ONDANSETRON HCL INJ/PF 4 MG/2 ML SDV ONE (09:36)
[2020-07-23] MEDS ORDERED: ROCURONIUM BROMIDE INJ 50 MG/5 ML VIAL IV ONE (09:36)
[2020-07-23] MEDS ORDERED: NEOSTIGMINE METHYLSULFATE 10 MG/10 ML VIAL ONE (09:36)
--- NOTE | 2020-07-23 10:14 | ER Document Report ---
ED Medical Screen (RME) - General Chief Complaint: Dialysis Catheter Problem Stated Complaint: PROBLEM WITH DIALYSIS TUBE Time Seen by Provider: 07/23/20 10:12 Primary Care Provider: ANNABELLE CAO MD [Primary Care Provider] - Follow up as needed Notes: HPI: 50-year-old female who is getting set to start peritoneal dialysis having problems with her peritoneal catheter. States that yesterday they did try a clot Buster because it is not draining well. She is a patient of Dr. Moses was told to come in today so they can adjust her catheter PHYSICAL EXAMINATION: Peritoneal catheter in the lower abdomen without erythema around the insertion point. Patient states that she had a small amount of water with her medications this morning but is otherwise n.p.o. I have greeted and performed a rapid initial assessment of this patient. A comprehensive ED assessment and evaluation of the patient, analysis of test results and completion of medical decision making process will be conducted by an additional ED providers. Please note that clinical decision making for this patient was made during the 2019 pandemic of novel coronavirus which caused a significant strain on the healthcare system including at this particular facility. Criteria for admission discharge and level of care decisions as well as treatment decisions have necessarily changed TRAVEL OUTSIDE OF THE [place] IN LAST 30 DAYS: No - Related Data Allergies/Adverse Reactions: No Known Allergies Allergy (Verified 04/05/18 19:18) Past Medical History - Past Medical History Cardiac Medical History: Reports: Hx Hypertension Denies: Hx Coronary Artery Disease, Hx Heart Attack Pulmonary Medical History: Denies: Hx Asthma, Hx Bronchitis, Hx COPD, Hx Pneumonia Neurological Medical History: Denies: Hx Cerebrovascular Accident, Hx Seizures Endocrine Medical History: Reports: Hx Diabetes Mellitus Type 2 Renal/ Medical History: Denies: Hx Peritoneal Dialysis Musculoskeltal Medical History: Denies Hx Arthritis Psychiatric Medical History: Denies: Hx Depression - Immunizations Hx Diphtheria, Pertussis, Tetanus Vaccination: Yes Physical Exam - Vital signs Vitals: Temp Pulse Resp BP Pulse Ox 98.4 F 86 16 160/79 H 100 07/23/20 09:42 07/23/20 09:42 07/23/20 09:42 07/23/20 09:42 07/23/20 09:42 Course - Vital Signs Vital signs: Temp Pulse Resp BP Pulse Ox 98.4 F 86 16 160/79 H 100 07/23/20 09:42 07/23/20 09:42 07/23/20 09:42 07/23/20 09:42 07/23/20 09:42 Doctor's Discharge - Discharge Referrals: ANNABELLE CAO MD [Primary Care Provider] - Follow up as needed
[2020-07-23 10:44] LABS: ABSOLUTE EOSINOPHILS # (AUTO) 0.4 10^3/uL (0.0-0.6); ABSOLUTE LYMPHOCYTES (AUTO) 0.9 10^3/uL (0.5-4.7); ABSOLUTE MONOCYTES (AUTO) 0.4 10^3/uL (0.1-1.4); ABSOLUTE NEUT (AUTO) 3.6 10^3/uL (1.7-8.2); BASOPHILS % (AUTO) 0.9 % (0-2); EOSINOPHILS % (AUTO) 6.9 % (0-6); HEMATOCRIT 20.9 % (36.0-47.0); LYMPHOCYTES % (AUTO) 17.6 % (13-45); MEAN CORPUSCULAR HEMOGLOBIN 30.9 pg (27.0-33.4); MEAN CORPUSCULAR HGB CONC 33.4 g/dL (32.0-36.0); MEAN CORPUSCULAR VOLUME 93 fl (80-97); MONOCYTES % (AUTO) 6.6 % (3-13); PLATELET COUNT 241 10^3/uL (150-450); RED BLOOD COUNT 2.26 10^6/uL (3.72-5.28); RED CELL DISTRIBUTION WIDTH 16.1 % (11.5-14.0); TOTAL CELLS COUNTED % (AUTO) 100 %; WHITE BLOOD COUNT 5.4 10^3/uL (4.0-10.5)
[2020-07-23 10:59] LABS: INTERNATIONAL RATION (INR) 0.96
[2020-07-23 11:09] LABS: ALKALINE PHOSPHATASE 126 U/L (38-126); ANION GAP 10 (5-19); ASPARTATE AMINO TRANSFERASE 11 U/L (14-36); BILIRUBIN,DIRECT 0.3 mg/dL (0.0-0.4); BILIRUBIN,TOTAL 0.4 mg/dL (0.2-1.3); BLOOD UREA NITROGEN 55 mg/dL (7-20); CARBON DIOXIDE 22 mmol/L (22-30); CHLORIDE 104 mmol/L (98-107); GLUCOSE 222 mg/dL (75-110); POTASSIUM 5.7 mmol/L (3.6-5.0); TOTAL PROTEIN 6.4 g/dL (6.3-8.2)
--- NOTE | 2020-07-23 11:26 | RADIOLOGY REPORT (SQ) ---
EXAM DESCRIPTION: CHEST SINGLE VIEW IMAGES COMPLETED DATE/TIME: 07/23/2020 11:15 am REASON FOR STUDY: ESRD COMPARISON: 11/03/2013 EXAM PARAMETERS: NUMBER OF VIEWS: One view. TECHNIQUE: Single frontal radiographic view of the chest acquired. RADIATION DOSE: NA LIMITATIONS: None. FINDINGS: LUNGS AND PLEURA: No opacities, masses or pneumothorax. No pleural effusion. MEDIASTINUM AND HILAR STRUCTURES: No masses. Contour normal. HEART AND VASCULAR STRUCTURES: Borderline enlarged, stable. No overt edema. BONES: No acute findings. HARDWARE: None in the chest. OTHER: No other significant finding. IMPRESSION: No evidence of acute cardiopulmonary process. TECHNICAL DOCUMENTATION: JOB ID: [id number] 2010 [employer]- All Rights Reserved Reading location - IP/workstation name: [email or web address]
--- NOTE | 2020-07-23 11:41 | ER Document Report ---
ED General - General Chief Complaint: Dialysis Catheter Problem Stated Complaint: PROBLEM WITH DIALYSIS TUBE Time Seen by Provider: 07/23/20 10:12 Primary Care Provider: ANNABELLE CAO MD [Primary Care Provider] - Follow up as needed TRAVEL OUTSIDE OF THE [place] IN LAST 30 DAYS: No - HPI Notes: Chief complaint: Complication related to peritoneal dialysis catheter History of present illness: 50-year-old female with end-stage renal disease who is not yet dialyzed but has recently had a peritoneal dialysis catheter placed by Dr. Ion Moses now returns with complications related to the catheter. Patient says she has been going to training sessions at the dialysis center and they have had some difficulty with both introduction of fluid and drainage of fluid from the catheter with suggestion of partial obstruction of the catheter. She says that he injected "clot blister" through the catheter several days ago when it appeared to be working normally. When I went back there again this morning they had difficulty getting fluid through the catheter. She denies any fever or chills. She denies any inflammation or drainage at the insertion site. She denies any nausea or vomiting. She denies any pain associated with the catheter. - Related Data Allergies/Adverse Reactions: No Known Allergies Allergy (Verified 04/05/18 19:18) Home Medications: Calcitrol, Sodium Bicarb, Clonidine Past Medical History - General Information source: Patient, Friend - Social History Smoking Status: Former Smoker Frequency of alcohol use: None Drug Abuse: None Family History: DM, Hypertension - Past Medical History Cardiac Medical History: Reports: Hx Hypertension Denies: Hx Coronary Artery Disease, Hx Heart Attack Pulmonary Medical History: Denies: Hx Asthma, Hx Bronchitis, Hx COPD, Hx Pneumonia Neurological Medical History: Denies: Hx Cerebrovascular Accident, Hx Seizures Endocrine Medical History: Reports: Hx Diabetes Mellitus Type 2 Renal/ Medical History: Denies: Hx Peritoneal Dialysis Musculoskeletal Medical History: Denies Hx Arthritis Psychiatric Medical History: Denies: Hx Depression Past Surgical History: Reports: Hx Section, Other - Placement of peritoneal dialysis catheter - Immunizations Hx Diphtheria, Pertussis, Tetanus Vaccination: Yes Review of Systems - Review of Systems Notes: Constitutional: Negative for fever. HENT: Negative for sore throat. Eyes: Negative for visual changes. Cardiovascular: Negative for chest pain. Respiratory: Negative for shortness of breath. Gastrointestinal: Negative for abdominal pain, vomiting or diarrhea. Genitourinary: Negative for dysuria. Musculoskeletal: Negative for back pain. Skin: Negative for rash. Neurological: Negative for headaches, weakness or numbness. 10 point ROS negative except as marked above and in HPI. Physical Exam - Vital signs Vitals: Temp Pulse Resp BP Pulse Ox 98.4 F 86 16 160/79 H 100 07/23/20 09:42 07/23/20 09:42 07/23/20 09:42 07/23/20 09:42 07/23/20 09:42 - Notes Notes: GENERAL: Slender middle-age female appearing in no acute distress. SKIN: Good turgor no rashes. HEAD: Normocephalic atraumatic. EYES: PERRLA. EOMI. Conjunctivae and sclerae clear. EARS: CANALS AND TMS CLEAR. NOSE: CLEAR. MOUTH: Moist mucosa. Good dentition. No stridor or edema. No drooling. NECK: Supple. No masses or thyromegaly. No adenopathy. Carotids 2+ without bruits. No JVD. BACK: Symmetrical without tenderness. CHEST: Respirations unlabored. Breath sounds clear and symmetrical. HEART: Regular rhythm. No murmur gallop or rub. ABDOMEN: PD catheter present left lower quadrant. No drainage, redness or tenderness noted. Soft nontender without masses, organomegaly or rebound. Bowel sounds normally active. No bruits. GENITALIA: Deferred. EXTREMITIES: No edema. No calf tenderness. Cap refill less than 1.5 seconds. Dorsalis pedis and posterior tibial pulses 3+ and symmetrical. NEUROLOGICAL: GCS 15. Alert and oriented x3. Normal gait. Fluent speech. Cranial nerves II through XII intact. Sensorimotor and cerebellar normal. Normal tone. PSYCHIATRIC: Appropriate affect. Course - Re-evaluation Re-evalutation: 07/23/20 11:43 We will keep patient n.p.o. at this time. I have spoken with the circulating nurse in the OR where Dr. Moses is currently scrubbed in and made him aware of the patient is here. Is my understanding that he will evaluate patient after he finishes his operative case. 07/23/20 12:01 Patient has been seen in the emergency department Dr. Moses and will be going to the OR. - Vital Signs Vital signs: Temp Pulse Resp BP Pulse Ox 98.4 F 86 16 160/79 H 100 07/23/20 09:42 07/23/20 09:42 07/23/20 09:42 07/23/20 09:42 07/23/20 09:42 - Laboratory Results Result Diagrams: 07/23/20 10:23 07/23/20 10:23 Laboratory Results Interpreted: 07/23/20 07/23/20 10:23 10:23 RBC 2.26 L Hgb 7.0 L Hct 20.9 L RDW 16.1 H Eos % (Auto) 6.9 H Sodium 136.0 L Potassium 5.7 H BUN 55 H Creatinine 7.82 H Est GFR ( Amer) 7 L Est GFR (MDRD) Non-Af 6 L Glucose 222 H Calcium 8.0 L AST 11 L Albumin 3.0 L Critical Laboratory Results Reviewed: Yes Attending or Supervising Physician who Reviewed Labs: JARRELL BUCK - Radiology Results Radiology Results Interpreted: 07/23/20 11:39 Chest x-ray reviewed by me demonstrating cardiomegaly with no infiltrates or significant vascular congestion. Critical Radiology Results Reviewed: Yes Attending or Supervising Physician who Reviewed Radiology: JARRELL BUCK - EKG Interpretation by Me Additional EKG results interpreted by me: 07/23/20 11:40 Twelve-lead EKG reviewed by me contemporaneously: 1122 hrs. Indication for study: Preop Rhythm: Normal sinus Rate: 78 Intervals: Borderline QT prolongation with QTC 488 ms QRS axis: +[address]/T wave changes: LVH with repolarization changes Comparison with prior tracing: No significant interval change from prior study 05/18/2020 Interpretation: LVH with repolarization changes and borderline QT prolongation. Discharge - Discharge Clinical Impression: Peritoneal dialysis catheter complicatio, End stage renal disease Condition: Good Disposition: SAME DAY SURGERY Admitting Provider: [facility] Unit Admitted: OR Referrals: ANNABELLE CAO MD [Primary Care Provider] - Follow up as needed
--- NOTE | 2020-07-23 12:18 | PDOC H&P ---
History of Present Illness Admission Date/PCP: ANNABELLE CAO MD Patient complains of: Nonfunctional PD catheter History of Present Illness: RAUL ROOT is a 50 year old female who is several months status post placement of a PD catheter. From what she reports, there has been a delay in its usage. She just recently began using it. She reports increasing difficulty with instillation of diasylate, and minimal return of fluid. Cathflo has been instilled in the catheter, with minimal to no result. The patient is in need of dialysis in the very near future. She denies any symptoms consistent with infection. There is no fevers, chills, abdominal pain, erythema, induration, or other problem at the catheter exit site. Past Medical History Cardiac Medical History: Reports: Hypertension Denies: Coronary Artery Disease, Myocardial Infarction Pulmonary Medical History: Denies: Asthma, Bronchitis, Chronic Obstructive Pulmonary Disease (COPD), Pneumonia Neurological Medical History: Denies: Seizures Endocrine Medical History: Reports: Diabetes Mellitus Type 2 Musculoskeltal Medical History: Denies: Arthritis Psychiatric Medical History: Denies: Depression Hematology: Denies: Anemia Past Surgical History Past Surgical History: Reports: Section, Other - Placement of peritoneal dialysis catheter Social History Smoking Status: Former Smoker Frequency of Alcohol Use: None Hx Recreational Drug Use: No Drugs: None Family History Family History: DM, Hypertension Parental Family History Reviewed: Yes Children Family History Reviewed: Yes Sibling(s) Family History Reviewed.: Yes Medication/Allergy Home Medications: Triamterene/Hydrochlorothiazid [Dyazide 37.5-25 Capsule] 1 cap PO DAILY 04/06/18 Hydrocodone/Acetaminophen [Brooks 5-325 mg Tablet] 1 tab PO Q6HP PRN #14 tablet 05/18/20 Allergies/Adverse Reactions: No Known Allergies Allergy (Verified 04/05/18 19:18) Review of Systems Constitutional: ABSENT: anorexia, chills, fatigue Eyes: ABSENT: visual disturbances Ears: ABSENT: hearing changes Nose, Mouth, and Throat: ABSENT: sore throat Cardiovascular: ABSENT: chest pain Respiratory: ABSENT: cough Gastrointestinal: ABSENT: abdominal pain, bloating Genitourinary: ABSENT: dysuria Musculoskeletal: ABSENT: back pain Integumentary: ABSENT: pruritus, rash Neurological: ABSENT: confusion, convulsions Psychiatric: ABSENT: anxiety, depression Endocrine: ABSENT: cold intolerance, heat intolerance Hematologic/Lymphatic: ABSENT: easy bleeding, easy bruising Physical Exam Vital Signs: Temp Pulse Resp BP Pulse Ox 98.4 F 86 16 160/79 H 100 07/23/20 09:42 07/23/20 09:42 07/23/20 09:42 07/23/20 09:42 07/23/20 09:42 Intake & Output 07/22/20 07/23/20 07/24/20 06:59 06:59 06:59 Weight 87.7 kg General appearance: PRESENT: no acute distress, cooperative. ABSENT: disheveled Eye exam: PRESENT: EOMI, PERRLA. ABSENT: scleral icterus Mouth exam: PRESENT: moist, neck supple Neck exam: ABSENT: meningismus, tenderness, thyromegaly, tracheal deviation Respiratory exam: PRESENT: unlabored. ABSENT: tachypnea, wheezes Cardiovascular exam: ABSENT: tachycardia GI/Abdominal exam: PRESENT: distended - mild, soft. ABSENT: rebound, rigid, tenderness Extremities exam: ABSENT: pedal edema Musculoskeletal exam: ABSENT: deformity Neurological exam: PRESENT: alert, awake, oriented to person, oriented to place, oriented to time, oriented to situation Psychiatric exam: ABSENT: agitated, anxious, depressed Focused psych exam: ABSENT: delusional Skin exam: ABSENT: cyanosis, erythema, jaundice Results Laboratory Results: 07/23/20 10:23 07/23/20 10:23 07/23/20 07/23/20 10:23 10:23 WBC 5.4 RBC 2.26 L Hgb 7.0 L Hct 20.9 L MCV 93 MCH 30.9 MCHC 33.4 RDW 16.1 H Plt Count 241 Seg Neutrophils % 68.0 Sodium 136.0 L Potassium 5.7 H Chloride 104 Carbon Dioxide 22 Anion Gap 10 BUN 55 H Creatinine 7.82 H Est GFR ( Amer) 7 L Glucose 222 H Calcium 8.0 L Total Bilirubin 0.4 AST 11 L Alkaline Phosphatase 126 Total Protein 6.4 Albumin 3.0 L Impressions: Chest X-Ray 07/23/20 11:02 IMPRESSION: No evidence of acute cardiopulmonary process. Assessment & Plan - Diagnosis (1) Peritoneal dialysis catheter dysfunction Qualifiers: Encounter type: initial encounter Qualified Code(s): T85.611A - Breakdown (mechanical) of intraperitoneal dialysis catheter, initial encounter Is this a current diagnosis for this admission?: Yes - Time Anticipated Discharge Disposition: unknown Anticipated Discharge Timeframe: unknown - Plan Summary Plan Summary: 50-year-old female with a peritoneal dialysis catheter placed more than 2 months ago. The patient reports sluggish inflow and minimal outflow. Cathflo has been instilled in the catheter, with no results. I have recommended exploration laparoscopically with manipulation of the catheter, to improve inflow and outflo w. The patient and her have agreed to this. Risk/benefits discussed, informed consent obtained, and all questions answered.
[2020-07-23] MEDS ORDERED: MIDAZOLAM 2 MG/2 ML INJ ONE (12:56)
[2020-07-23] MEDS ORDERED: FENTANYL CITRATE INJ/PF 100 MCG/2 ML AMPUL ONE (12:56)
[2020-07-23] MEDS ORDERED: EPHEDRINE SULFATE INJ 50 MG/1 ML AMPULE ONE (12:56)
[2020-07-23] MEDS ORDERED: BUPIVACAINE HCL 0.25 % INJ/PF (2.5 MG/1 ML) 30 ML VIAL ONE (12:57)
[2020-07-23] MEDS ORDERED: PROPOFOL INJ 200 MG/20 ML VIAL IV ONE (12:57)
[2020-07-23] MEDS ORDERED: CEFAZOLIN INJ 1 GM VIAL ONE (13:53)
[2020-07-23] MEDS ORDERED: FENTANYL CITRATE INJ/PF 100 MCG/2 ML AMPUL IV PRN ×3 (15:06)
[2020-07-23] MEDS ORDERED: OXYCODONE-ACETAMINOPHEN 5-325 MG TABLET PO PRN ×2 (15:06)
[2020-07-23] MEDS ORDERED: MORPHINE SULFATE 10 MG/ML INJ IV PRN (15:06)
[2020-07-23] MEDS ORDERED: DIPHENHYDRAMINE HCL 50 MG/ML VIAL IV PRN (15:06)
[2020-07-23] MEDS ORDERED: MEPERIDINE HCL/PF INJ 25 MG/1 ML DISP.SYRIN IV PRN (15:06)
[2020-07-23] MEDS ORDERED: PROMETHAZINE HCL INJ 25 MG/1 ML VIAL IV PRN ×2 (15:06)
[2020-07-23] MEDS: FENTANYL CITRATE INJ/PF 100 MCG/2 ML AMPUL ONE ×2 (16:10→16:13)
--- NOTE | 2020-07-23 16:12 | Operative Report ---
Nonrecallable Operative Report DATE OF SURGERY: 07/23/20 PREOPERATIVE DIAGNOSIS: Dysfunctional peritoneal dialysis catheter POSTOPERATIVE DIAGNOSIS: Same as above OPERATION: 1. Laparoscopic lysis of adhesions. 2. Laparoscopic manipulation of intraperitoneal catheter with pexy of the catheter to the left lateral pelvic sidewall. 3. Repeat laparoscopic omentopexy SURGEON: GODWIN CORDERO ANESTHESIA: GA TISSUE REMOVED OR ALTERED: None COMPLICATIONS: None apparent ESTIMATED BLOOD LOSS: Minimal PROCEDURE: Drains/implants: Left abdominal PD catheter remained in place. Procedure in detail: After informed consent was obtained, the patient was brought to the operating room and laid in the supine position. The peritoneal dialysis catheter was prepped, and was then used for gas insufflation and achievement of pneumoperitoneum. Once pneumoperitoneum was achieved, a left upper quadrant 5 mm trocar was introduced into the abdominal cavity using the 5 mm camera and the Optiview technique. Next a right upper quadrant trocar was placed to facilitate manipulation of the catheter and exploration of the abdomen. The catheter was seen to be in the mid abdomen, with omentum attached to it (at the infraumbilical abdominal wall). The area of previous omentopexy was identified, however the omentum causing the problem appeared to be a separate portion of the omentum, attached to the umbilical area. The catheter was freed from the omentum using blunt dissection. The omentum that had become densely adherent to the infraumbilical area was freed from the anterior abdominal wall using a mixture of sharp and blunt dissection. After the lysis of adhesions was completed, the catheter was found to be completely free of any omentum or small bowel. Attention was then turned to repositioning of the catheter. The catheter was then flushed, and cleared of any fibrinous or bloody debris. Next, attention was turned to ensuring that the catheter remained in the pelvis. The catheter was returned to the pouch of Konrad. Another trocar would be necessary in order to suture the PD catheter to the pelvis. A right lower quadrant trocar was felt to be necessary. A 5 mm trocar was placed in the right lower quadrant under direct laparoscopic visualization. A 2-0 silk suture was used to secure the catheter to the left lateral pelvic sidewall. The catheter was sewn to the peritoneum of the lateral pelvic sidewall, carefully so as not to injure underlying structures. Once this was complete, the catheter was found to lie in very good position. The catheter was then flushed with 600 cc of saline, and immediately 500 cc of saline was easily returned via gravity. Once this was confirmed, attention was turned to performing of the omentopexy. The omentum that had entangled the catheter was looped with a PDS Endoloop and sutured to the left upper quadrant. Laparoscopic inspection showed that it rem ained in the upper abdomen, free of the pelvis. Once this was completed, the right lower quadrant trocar site was closed using 0 Vicryl suture in simple interrupted fashion with the aid of the Ramone-Kimberli device. The trochars were removed, and pneumoperitoneum was relieved. The right upper quadrant trocar site was then closed using 0 Vicryl suture in simple interrupted fashion under direct vision. Next, the overlying skin was closed using 4-0 Vicryl Rapide suture in running subcuticular fashion. Dressings were placed, and the procedure was concluded. All sponge, instrument, and needle counts were correct x2. Condition: Stable.
--- NOTE | 2020-07-23 16:20 | PDOC DISCHARGE SUMMARY ---
General - Admit/Disc Date/PCP Admission Date/Primary Care Provider: ANNABELLE CAO MD Discharge Date: 07/23/20 - Discharge Diagnosis Final Diagnosis: Dysfunctional peritoneal dialysis catheter - Assessment Summary: 50-year-old female with a peritoneal dialysis catheter that has stopped functioning. She was admitted to hospital for repositioning of the PD catheter. She was taken to the operating room where laparoscopic PD catheter manipulation was performed with omentopexy. The patient tolerated the procedure well. In recovery, she was feeling well, and asking to be discharged. At this time she has reached maximal hospital benefit and is fit for discharge. - Additional Information Resuscitation Status: Full Code Discharge Diet: As Tolerated Discharge Activity: Balance Activity w/Rest, No Lifting Over 10 Pounds Referrals: ANNABELLE CAO MD [Primary Care Provider] - Follow up as needed Prescriptions: Hydrocodone/Acetaminophen [Winters 10-325 mg Tablet] 1 tab PO Q6HP PRN #14 tablet PRN Reason: For Pain Home Medications: Triamterene/Hydrochlorothiazid [Dyazide 37.5-25 Capsule] 1 cap PO DAILY 04/06/18 Hydrocodone/Acetaminophen [Winters 10-325 mg Tablet] 1 tab PO Q6HP PRN #14 tablet 07/23/20 Additional Information: Discharge home. Diet as tolerated. Activity: Nonstrenuous. Follow-up with [facility] in 7 to 10 days. Okay to shower. No tub baths or swimming pools. Winters 10/3 2 5 mg p.o. every 6 hours as needed for pain. History of Present Illiness History of Present Illness: RAUL ROOT is a 50 year old female who is several months status post placement of a PD catheter. From what she reports, there has been a delay in its usage. She just recently began using it. She reports increasing difficulty with instillation of diasylate, and minimal return of fluid. Cathflo has been instilled in the catheter, with minimal to no result. The patient is in need of dialysis in the very near future. She denies any symptoms consistent with infection. There is no fevers, chills, abdominal pain, erythema, induration, or other problem at the catheter exit site. Physical Exam Vital Signs: Temp Pulse Resp BP Pulse Ox 98.4 F 86 19 155/81 H 100 07/23/20 13:50 07/23/20 13:50 07/23/20 13:50 07/23/20 13:50 07/23/20 13:50 Intake & Output 07/22/20 07/23/20 07/24/20 06:59 06:59 06:59 Weight 87.7 kg Results Laboratory Results: WBC 5.4 10^3/uL (4.0-10.5) 07/23/20 10:23 RBC 2.26 10^6/uL (3.72-5.28) L 07/23/20 10:23 Hgb 7.0 g/dL (12.0-15.5) L 07/23/20 10:23 Hct 20.9 % (36.0-47.0) L 07/23/20 10:23 MCV 93 fl (80-97) 07/23/20 10:23 MCH 30.9 pg (27.0-33.4) 07/23/20 10:23 MCHC 33.4 g/dL (32.0-36.0) 07/23/20 10:23 RDW 16.1 % (11.5-14.0) H 07/23/20 10:23 Plt Count 241 10^3/uL (150-450) 07/23/20 10:23 Lymph % (Auto) 17.6 % (13-45) 07/23/20 10:23 [place] % (Auto) 6.6 % (3-13) 07/23/20 10:23 Eos % (Auto) 6.9 % (0-6) H 07/23/20 10:23 Baso % (Auto) 0.9 % (0-2) 07/23/20 10:23 Absolute Neuts (auto) 3.6 10^3/uL (1.7-8.2) 07/23/20 10:23 Absolute Lymphs (auto) 0.9 10^3/uL (0.5-4.7) 07/23/20 10:23 Absolute Monos (auto) 0.4 10^3/uL (0.1-1.4) 07/23/20 10:23 Absolute Eos (auto) 0.4 10^3/uL (0.0-0.6) 07/23/20 10:23 Absolute Basos (auto) 0.0 10^3/uL (0.0-0.2) 07/23/20 10:23 Seg Neutrophils % 68.0 % (42-78) 07/23/20 10:23 PT 13.0 SEC (11.4-15.4) 07/23/20 10:23 INR 0.96 07/23/20 10:23 Sodium 136.0 mmol/L (137-145) L 07/23/20 10:23 Potassium 5.7 mmol/L (3.6-5.0) H 07/23/20 10:23 Chloride 104 mmol/L (98-107) 07/23/20 10:23 Carbon Dioxide 22 mmol/L (22-30) 07/23/20 10:23 Anion Gap 10 (5-19) 07/23/20 10:23 BUN 55 mg/dL (7-20) H 07/23/20 10:23 Creatinine 7.82 mg/dL (0.52-1.25) H 07/23/20 10:23 Est GFR ( Amer) 7 (>60) L 07/23/20 10:23 Est GFR (MDRD) Non-Af 6 (>60) L 07/23/20 10:23 Glucose 222 mg/dL (75-110) H 07/23/20 10:23 Calcium 8.0 mg/dL (8.4-10.2) L 07/23/20 10:23 Total Bilirubin 0.4 mg/dL (0.2-1.3) 07/23/20 10:23 Direct Bilirubin 0.3 mg/dL (0.0-0.4) 07/23/20 10:23 Neonat Total Bilirubin Not Reportable 07/23/20 10:23 Neonat Direct Bilirubin Not Reportable 07/23/20 10:23 Neonat Indirect Bili Not Reportable 07/23/20 10:23 AST 11 U/L (14-36) L 07/23/20 10:23 ALT 7 U/L (<35) 07/23/20 10:23 Alkaline Phosphatase 126 U/L (38-126) 07/23/20 10:23 NT-Pro-B Natriuret Pep 92466 pg/mL (<125) H 07/23/20 10:23 Total Protein 6.4 g/dL (6.3-8.2) 07/23/20 10:23 Albumin 3.0 g/dL (3.5-5.0) L 07/23/20 10:23 Influenza A (RT-PCR) NEGATIVE (NEGATIVE) 07/23/20 12:32 Influenza B (RT-PCR) NEGATIVE (NEGATIVE) 07/23/20 12:32 RSV (RT-PCR) NEGATIVE (NEGATIVE) 07/23/20 12:32 SARS-CoV-2 Rap RNA(RT-PCR) NEGATIVE (NEGATIVE) 07/23/20 12:32 Blood Type O POSITIVE 07/23/20 13:15 Antibody Screen NEGATIVE 07/23/20 13:15 07/23/20 10:23 NT-Pro-B Natriuret Pep 40331 H Impressions: Chest X-Ray 07/23/20 11:02 IMPRESSION: No evidence of acute cardiopulmonary process.
[2020-07-23] MEDS ORDERED: OXYCODONE-ACETAMINOPHEN 5-325 MG TABLET ONE (16:34)
[2020-07-23] MEDS ORDERED: ACETAMINOPHEN 1,000 MG/100 ML RTUPB IV ONE ×2 (17:08→17:30)
[2020-07-23 18:30] VITALS: BP 174/95
--- NOTE | 2020-07-23 19:33 | EKG REPORT ---
SEVERITY:- ABNORMAL ECG - SINUS RHYTHM LEFT ATRIAL ABNORMALITY LVH WITH SECONDARY REPOLARIZATION ABNORMALITY BORDERLINE PROLONGED QT INTERVAL : Confirmed by: Rakel Jones MD 23-Jul-2020 19:33:00
== END 2020-07-23 18:55 | disposition home or self-care (01) ==
LOC: ER 09:32 → ASU 12:08
PROVIDERS: ATTEND Surgery
DX: T85.611A Breakdown (mechanical) of intraperitoneal dialysis catheter, initial encounter (principal); Y83.8 Other surgical procedures as the cause of abnormal reaction of the patient, or of later complication, without mention of misadventure at the time of the procedure; I12.0 Hypertensive chronic kidney disease with stage 5 chronic kidney disease or end stage renal disease; N18.6 End stage renal disease; Z79.899 Other long term (current) drug therapy; Z82.49 Family history of ischemic heart disease and other diseases of the circulatory system; Z87.891 Personal history of nicotine dependence; Z01.810 Encounter for preprocedural cardiovascular examination; Z01.812 Encounter for preprocedural laboratory examination; Z20.822 Contact with and (suspected) exposure to COVID-19; I45.81 Long QT syndrome
CPT/HCPCS: 93005; 99285; 86900; 86901; 36415; 86850; 85025; 85610; 0241U; 80053; 83880; 71045; 93010; 49325; 49326; J2250; J0690; J3010; J2704; J1642; J0131; C9803; 82962; C1758; J2405; J2710; J3490